=== PATIENT | male | born 1960 | race Caucasian/White ===

== ENCOUNTER 2022-05-21 13:01 | Outpatient (CLI) | payer OTHER ==
--- NOTE | 2022-05-23 11:54 | MRI Report ---
PROCEDURE: SHOULDER WO - LT INDICATIONS: SHOULDER PAIN TECHNIQUE: Noncontrast oblique coronal T2 fast spin echo with fat saturation, oblique sagittal T1 spin echo and T2 fast spin echo with fat saturation, axial T1 spin echo and T2 fast spin echo with fat saturation t hrough the shoulder. COMPARISON: None. FINDINGS: Image quality: Good Rotator cuff Bulk: Mild to moderate atrophy of teres minor, nonspecific. Teres minor: Tendon is intact. Supraspinatus: High-grade articular sided tear of the mid tendon. There is superimposed tendinosis. Infraspinatus: Tendinosis. Subscapularis: Tendinosis. Bones and bursae GH joint: Overall mild degenerative changes with osteophytes and cartilage thinning. No subchondral e ja or geode. AC joint: Moderate degenerative changes Humeral head: No acute edema. Enthesopathic changes. Scapula and acromion: Normal morphology Bursa: Mild edema Capsule Labrum: Not well evaluated. No discrete tear is identified. Long head biceps tendon: Intact IGHL: Intact Rotator interval: Fat signal is preserved Soft tissues: No axillary adenopathy. Lungs are not well seen. IMPRESSION: High-grade partial-thickness articular sided tear of the supraspinatus. Infraspinatus and subscapular is tendinosis. Other findings as above. Reviewed by: Dk Schneider MD on 05/23/2022 11:52 AM PST Approved by: Dk Schneider MD on 05/23/2022 11:52 AM PST Station ID: [id number]
== END 2022-05-21 13:02 | disposition home or self-care (01) ==
LOC: DI 13:01
PROVIDERS: ATTEND Physician Assistant
DX: M75.112 Incomplete rotator cuff tear or rupture of left shoulder, not specified as traumatic (principal); M62.512 Muscle wasting and atrophy, not elsewhere classified, left shoulder

== ENCOUNTER 2023-06-25 14:29 | Emergency (ER) | payer OTHER ==
[2023-06-25 14:58] VITALS: BP 140/88; O2SAT 99
[2023-06-25] MEDS ORDERED: KETOROLAC 30 MG/ML VIAL IM STA (15:33)
[2023-06-25] MEDS ORDERED: LIDOCAINE PATCH 4% TOP STA (15:34)
[2023-06-25] MEDS ORDERED: methocarbamoL 500 MG TABLET PO STA (15:34)
[2023-06-25] MEDS ORDERED: oxyCODONE 5 MG TABLET PO STA (15:34)
--- NOTE | 2023-06-25 16:10 | XRAY Report ---
PROCEDURE: Ribs w/PA Chest 3+V LT INDICATIONS: GLF, L LOWER RIB PAIN TECHNIQUE: 2 views of the left ribs were acquired, along with a single view chest. COMPARISON: None. FINDINGS: Surgical changes and devices: None. Bones and chest wall: A marker is placed upon the area of pain. At this site, no fractures are seen. No fractures or dislocations are seen elsewhere. No suspicious bony lesions. Age-appropriate degen erative changes are seen. The overlying soft tissues appear unremarkable. Lungs and pleura: No pleural effusions or pneumothorax. Lungs appear clear. Mediastinum: Mediastinal contours appear normal. Heart size is normal. IMPRESSION: No displaced rib fracture or pneumothorax. If there is strong clinical concern for a post traumatic abnormality that is not seen on this plain f ilm study, then please consider a dedicated chest CT with IV contrast for further evaluation. Reviewed by: Rajeev Oneill MD on 06/25/2023 3:09 PM [facility] Approved by: Rajeev Oneill MD on 06/25/2023 3:09 PM [facility] Station ID: [id number]
--- NOTE | 2023-06-25 16:35 | ED Physician Documentation ---
History of Present Illness - Stated complaint Stated Complaint: LOWER BACK PX,DIZZINESS - Chief complaint Chief Complaint: Back Pain - History obtained from History obtained from: Patient - Additonal information Additional information: 62-year-old male presents for left flank pain for 1 week. Symptoms began after he slipped and fell, landing on some boxes. He states he feels like there is a spasm in his back that is just not getting better and in fact getting worse. He cannot sleep because of the discomfort. Has been using voltaren gel and taking ibuprofen for pain. Review of Systems Constitutional: denies: Fever, Chills Cardiac: denies: Chest pain / pressure, Palpitations, Calf pain Respiratory: denies: Dyspnea, Cough, Wheezing GI: denies: Abdominal Pain, Nausea, Vomiting, Constipation, Diarrhea : denies: Dysuria, Frequency, Hesitancy Skin: denies: Rash, Lesions, Abrasion (s), Laceration (s) Musculoskeletal: reports: Back pain. denies: Neck pain, Extremity pain PD PAST MEDICAL HISTORY - Past Medical History Past Medical History: Yes Cardiovascular: Hypertension - Past Surgical History Past Surgical History: No - Present Medications Home Medications: Ambulatory Orders Medication Instructions Recorded Confirmed HYDROcod/ACETAM 5/325 [[place] 5/325] 1 - 2 tab PO Q6H PRN #8 tablet 06/25/23 methocarbamoL [Robaxin] 500 mg PO Q6H #30 tablet 06/25/23 - Allergies Allergies/Adverse Reactions: Allergies Allergy/AdvReac Type Severity Reaction Status Date / Time No Known Drug Allergies Allergy Verified 06/25/23 14:54 - Social History Does the pt smoke?: No Smoking Status: Never smoker PD ED PE NORMAL - Vitals Vital signs reviewed: Yes - General General: Alert and oriented X 3, No acute distress, Well developed/nourished - HEENT HEENT: Atraumatic, PERRL, EOMI - Neck Neck: Supple, no meningeal sign - Cardiac Cardiac: RRR, Strong equal pulses - Abdomen Abdomen: Soft, Non tender, Non distended - Back Back: No spinal TTP, Other (healing contusion L lower ribs, no crepitus) - Derm Derm: Warm and dry, No rash - Extremities Extremities: No deformity, No tenderness to palpate, Normal ROM s pain, No edema - Neuro Neuro: Alert and oriented X 3, technology manager 2-12 intact, No motor deficit, Normal speech Results - Vitals Vitals: Vital Signs - 24 hr 06/25/23 14:51 Temperature 36.7 C Heart Rate 74 Respiratory 16 Rate Blood Pressure 140/88 H O2 Saturation 99 PD Medical Decision Making - ED course Complexity details: reviewed results, re-evaluated patient, considered differential, d/w patient, d/w family ED course: Well-appearing patient with persistent pain after fall 1 week prior. He has a contusion on his left lower rib cage without crepitus. He states the pain feels more like a terrible spasm that just is not getting better. Will order x-ray imaging and medications for pain ordered. X-rays negative for fracture. Patient feeling slightly better with the given medications. X-ray findings counseled at bedside. Recommended adding Tylenol to pain regimen, applying ice, and applying lidocaine patches as needed for comfort. Short course of medication sent to pharmacy of choice. Departure - Departure Disposition: 01 Home, Self Care Clinical Impression: Thoracic back pain Condition: Stable Instructions: ED Contusion Rib Prescriptions: HYDROcod/ACETAM 5/325 [[place] 5/325] 1 - 2 tab PO Q6H PRN #8 tablet PRN Reason: Pain methocarbamoL [Robaxin] 500 mg PO Q6H #30 tablet Comments: You may alternate Tylenol and Motrin for pain. Be sure to take no more than 4000 mg of Tylenol total per day. May also apply ice, heat, and lidocaine patches as needed for comfort. Please follow-up with your primary care physician. Discharge Date/Time: 06/25/23 16:41
== END 2023-06-25 16:41 | disposition home or self-care (01) ==
LOC: ED 14:29
DX: S20.212A Contusion of left front wall of thorax, initial encounter (principal); M54.6 Pain in thoracic spine; W01.198A Fall on same level from slipping, tripping and stumbling with subsequent striking against other object, initial encounter
CPT/HCPCS: 71101; 96372; 99283; A9270